=== PATIENT | female | born 1960 | race African-American/Black ===

== ENCOUNTER 2017-07-26 14:17 | Inpatient (IN) ==
[2017-07-26] MEDS ORDERED: hydrALAZINE 20 MG/1 ML VIAL IV STA (14:49)
[2017-07-26 15:04] LABS: Basophils # 0.1 10*3/uL (0.0-0.2); Basophils % 0.8 % (0.0-0.8); Eosinophils # 0.3 10*3/uL (0.0-0.87); Eosinophils % 4.4 % (0.00-10.9); Immature Granulocytes % 0.7 %; Immature Granulocytes Absolute 0.05 #; Lymphocytes # 1.5 10*3/uL (1.4-4.0); Mean Corpuscular HGB Conc 30.2 GM/DL (32-36); Mean Corpuscular Hemoglobin 30 PG (27-34); Mean Corpuscular Volume 99.4 FL (87-102); Mean Platelet Volume 9.5 FL (9.6-12.0); Monocytes # 0.5 10*3/uL (0.11-0.8); Monocytes % 6.1 % (1.7-12.7); Neutrophils # 5.3 10*3/uL (1.4-7.4); Platelet Count 231 T/CUMM (130-400); Red Cell Distribution Width 14.7 % (9.3-17.3); White Blood Count 7.7 T/CUMM (4-12)
[2017-07-26] MEDS ORDERED: hydrALAZINE 20 MG/1 ML VIAL ONE (15:06)
[2017-07-26 15:13] LABS: Alanine Aminotransferase 13 U/L (13-56); Albumin 3.3 G/DL (3.4-5.0); Alkaline Phosphatase 335 U/L (45-117); Aspartate Amino Transferase 9 U/L (0-37); Bilirubin,Total < 0.39 MG/DL (0.2-1.0); Blood Urea Nitrogen 66 MG/DL (7-18); Calcium 7.7 MG/DL (8.5-10.1); Glucose 107 MG/DL (74-106); Magnesium 1.4 MG/DL (1.8-2.4); Osmolality,Calculated 299.3 MOS/KG (273-304); Potassium 5.1 MMOL/L (3.5-5.1); Sodium 141 MMOL/L (136-145); Total Protein 8.3 G/DL (6.4-8.3); Troponin I Only < 0.015 NG/ML (0.00-0.045)
[2017-07-26 15:25] LABS: Hemoglobin 5.4 GM/DL (12.0-16.0)
[2017-07-26 15:26] LABS: Hematocrit 17.9 VOL% (35.7-47.0)
[2017-07-26] MEDS ORDERED: ONDANSETRON 4 MG/2 ML VIAL IV PRN (16:22)
[2017-07-26] MEDS ORDERED: SODIUM CHLORIDE 0.9% 1,000 ML IV PRN (16:35)
[2017-07-26] MEDS ORDERED: DEXTROSE 50% 25 GM/50 ML VIAL IV PRN (16:53)
[2017-07-26] MEDS ORDERED: GLUCAGON 1 MG VIAL IM PRN (16:53)
[2017-07-26 19:28] LABS: Folate 9.6 NG/ML (5.4-24.0); Vitamin B12 992 PG/ML (211-911)
[2017-07-26 20:27] LABS: Basophils % 0.5 % (0.0-0.8); Eosinophils # 0.4 10*3/uL (0.0-0.87); Eosinophils % 4.4 % (0.00-10.9); Immature Granulocytes % 0.8 %; Immature Granulocytes Absolute 0.07 #; Lymphocytes # 1.7 10*3/uL (1.4-4.0); Lymphocytes % 20.5 % (21.3-54.2); Mean Corpuscular HGB Conc 29.9 GM/DL (32-36); Mean Corpuscular Hemoglobin 30 PG (27-34); Mean Corpuscular Volume 98.7 FL (87-102); Mean Platelet Volume 9.5 FL (9.6-12.0); Monocytes # 0.5 10*3/uL (0.11-0.8); Monocytes % 5.5 % (1.7-12.7); Neutrophils # 5.8 10*3/uL (1.4-7.4); Neutrophils % 68.3 % (38.7-73.9); Platelet Count 205 T/CUMM (130-400); Red Blood Count 1.56 MC/CUMM (3.8-5.5); Red Cell Distribution Width 14.8 % (9.3-17.3); White Blood Count 8.5 T/CUMM (4-12)
[2017-07-26 20:29] LABS: Hematocrit 15.4 VOL% (35.7-47.0); Hemoglobin 4.6 GM/DL (12.0-16.0)
[2017-07-26] MEDS ORDERED: hydrALAZINE 20 MG/1 ML VIAL IV PRN (20:32)
[2017-07-26] MEDS ORDERED: cloNIDine 0.1 MG TABLET PO PRN (20:33)
[2017-07-26] MEDS: CARVEDILOL 12.5 MG TABLET PO SCH (20:59)
[2017-07-26] MEDS: SODIUM BICARBONATE 650 MG TABLET PO SCH (20:59)
[2017-07-26] MEDS: INSULIN REGULAR 100 UNIT/ML SUBCUT SCH (21:00)
[2017-07-26] MEDS: PANTOPRAZOLE 40 MG VIAL IV SCH (21:00)
[2017-07-26 21:27] LABS: Sedimentation Rate-Westergren 120 MM/HR (0-30)
[2017-07-27 06:07] LABS: Hemoglobin A1 (Alkaline) 97.9 % (96.5-98.5); Hemoglobin A2 (Alkaline) 2.1 % (1.5-3.5)
[2017-07-27] MEDS ORDERED: amLODIPine 2.5 MG TABLET PO SCH (09:00)
[2017-07-27] MEDS: SODIUM BICARBONATE 650 MG TABLET PO SCH ×2 (09:49→21:24)
[2017-07-27] MEDS: MAGNESIUM OXIDE 400 MG TABLET PO SCH (09:49)
[2017-07-27] MEDS: PANTOPRAZOLE 40 MG VIAL IV SCH ×2 (09:50→21:24)
[2017-07-27] MEDS: amLODIPine 5 MG TABLET PO SCH (09:50)
[2017-07-27] MEDS: CARVEDILOL 12.5 MG TABLET PO SCH ×2 (09:50→21:24)
[2017-07-27] MEDS: INSULIN REGULAR 100 UNIT/ML SUBCUT SCH ×4 (11:20→21:27)
[2017-07-27 11:52] LABS: INR 1.1; PT Patient Result 11.3 SECS; Partial Thromboplastin Time 32.3 SECS (0-40)
[2017-07-27 11:53] LABS: Basophils # 0.1 10*3/uL (0.0-0.2); Basophils % 1.2 % (0.0-0.8); Eosinophils # 0.3 10*3/uL (0.0-0.87); Eosinophils % 4.3 % (0.00-10.9); Hematocrit 20.8 VOL% (35.7-47.0); Immature Granulocytes % 1.2 %; Immature Granulocytes Absolute 0.08 #; Lymphocytes # 1.4 10*3/uL (1.4-4.0); Lymphocytes % 20.4 % (21.3-54.2); Mean Corpuscular HGB Conc 30.8 GM/DL (32-36); Mean Corpuscular Hemoglobin 30 PG (27-34); Mean Corpuscular Volume 97.2 FL (87-102); Mean Platelet Volume 9.3 FL (9.6-12.0); Monocytes # 0.4 10*3/uL (0.11-0.8); Monocytes % 5.6 % (1.7-12.7); Neutrophils # 4.7 10*3/uL (1.4-7.4); Neutrophils % 67.3 % (38.7-73.9); Platelet Count 208 T/CUMM (130-400); Red Cell Distribution Width 16.1 % (9.3-17.3); White Blood Count 6.9 T/CUMM (4-12)
[2017-07-27 11:55] LABS: Hemoglobin 6.4 GM/DL (12.0-16.0); Red Blood Count 2.14 MC/CUMM (3.8-5.5)
[2017-07-27 12:07] LABS: Calcium 7.8 MG/DL (8.5-10.1); Osmolality,Calculated 298.3 MOS/KG (273-304); Potassium 5.1 MMOL/L (3.5-5.1)
[2017-07-27] MEDS ORDERED: SODIUM CHLORIDE 0.9% 1,000 ML IV PRN (12:41)
[2017-07-27 13:42] LABS: % Iron Saturation 58.7 % (18-50)
[2017-07-27] MEDS ORDERED: GLUCAGON 1 MG VIAL IM PRN (14:03)
[2017-07-27] MEDS ORDERED: DEXTROSE 50% 25 GM/50 ML VIAL IV PRN (14:03)
[2017-07-27] MEDS: FUROSEMIDE 80 MG TABLET PO SCH (16:18)
[2017-07-27] MEDS ORDERED: SKIN HEALING OINT (AQUAPHOR) 50 GM TUBE TOP PRN (16:47)
[2017-07-28 04:25] LABS: Basophils # 0.1 10*3/uL (0.0-0.2); Basophils % 0.7 % (0.0-0.8); Eosinophils # 0.3 10*3/uL (0.0-0.87); Eosinophils % 5.1 % (0.00-10.9); Hematocrit 24.4 VOL% (35.7-47.0); Hemoglobin 7.9 GM/DL (12.0-16.0); Immature Granulocytes % 0.6 %; Immature Granulocytes Absolute 0.04 #; Lymphocytes % 14.5 % (21.3-54.2); Mean Corpuscular HGB Conc 32.4 GM/DL (32-36); Mean Corpuscular Hemoglobin 30 PG (27-34); Mean Platelet Volume 9.1 FL (9.6-12.0); Monocytes # 0.5 10*3/uL (0.11-0.8); Monocytes % 6.9 % (1.7-12.7); Neutrophils # 4.8 10*3/uL (1.4-7.4); Neutrophils % 72.2 % (38.7-73.9); Platelet Count 206 T/CUMM (130-400); Red Blood Count 2.68 MC/CUMM (3.8-5.5); Red Cell Distribution Width 16.8 % (9.3-17.3); White Blood Count 6.7 T/CUMM (4-12)
[2017-07-28 04:51] LABS: Calcium 7.8 MG/DL (8.5-10.1); Osmolality,Calculated 299.3 MOS/KG (273-304); Potassium 5.4 MMOL/L (3.5-5.1)
[2017-07-28 06:01] LABS: Apearance,Urine CLOUDY (Clear); Bacteria,Urine Many /HPF (Few); Bilirubin,Urine Negative (Negative); Blood, Urine Small mg/dL (Negative); Glucose,Urine (UA) 50 mg/dL (Negative); Ketones,Urine Negative (Negative); Mucus,Urine Occasional /LPF (Occasional); Nitrite,Urine Negative (Negative); Protein,Urine 100 MG/DL; RBC,Urine 5 /HPF (0-4); Squamous Epithelial Cell,Urine Occasional /HPF (0-10); Urine Color Yellow (Yellow); Urine Urobilinogen < 2.0 EU/DL (0.2-1.0); WBC,Urine 6 /HPF (0-6)
[2017-07-28] MEDS: LEVOTHYROXINE 75 MCG TABLET PO SCH (06:31)
[2017-07-28] MEDS ORDERED: GLUCAGON 1 MG VIAL IM PRN (09:54)
[2017-07-28] MEDS ORDERED: DEXTROSE 50% 25 GM/50 ML VIAL IV PRN (09:54)
[2017-07-28] MEDS: SODIUM BICARBONATE 650 MG TABLET PO SCH ×2 (10:47→20:37)
[2017-07-28] MEDS: amLODIPine 5 MG TABLET PO SCH (10:47)
[2017-07-28] MEDS: CARVEDILOL 12.5 MG TABLET PO SCH ×2 (10:48→20:37)
[2017-07-28] MEDS: PANTOPRAZOLE 40 MG VIAL IV SCH ×2 (10:48→20:37)
[2017-07-28] MEDS: FUROSEMIDE 80 MG TABLET PO SCH ×2 (10:48→15:41)
[2017-07-28] MEDS: MAGNESIUM OXIDE 400 MG TABLET PO SCH (10:48)
[2017-07-28] MEDS: INSULIN REGULAR 100 UNIT/ML SUBCUT SCH ×4 (10:53→20:31)
[2017-07-28] MEDS: SODIUM POLYSTYRENE SULFATE 15 GM/60 ML BOTTLE PO SCH ×3 (10:55→21:42)
[2017-07-28] MEDS ORDERED: SKIN HEALING OINT (AQUAPHOR) 50 GM TUBE TOP PRN (11:23)
[2017-07-28] MEDS ORDERED: SODIUM BICARB INJ 150 MEQ in STERILE WATER INJ 850 ML IV SCH (12:00)
[2017-07-28] MEDS ORDERED: DARBEPOETIN ALFA 200 MCG/ML VIAL SUBCUT ONE (12:00)
[2017-07-28] MEDS ORDERED: ZALEPLON 5 MG CAPSULE PO PRN (20:27)
[2017-07-29 05:05] LABS: Basophils # 0.1 10*3/uL (0.0-0.2); Basophils % 0.8 % (0.0-0.8); Eosinophils # 0.3 10*3/uL (0.0-0.87); Eosinophils % 5.4 % (0.00-10.9); Hematocrit 24.1 VOL% (35.7-47.0); Immature Granulocytes % 1.3 %; Immature Granulocytes Absolute 0.08 #; Lymphocytes % 16.4 % (21.3-54.2); Mean Corpuscular HGB Conc 33.2 GM/DL (32-36); Mean Corpuscular Hemoglobin 30 PG (27-34); Mean Corpuscular Volume 90.9 FL (87-102); Mean Platelet Volume 9.3 FL (9.6-12.0); Monocytes # 0.4 10*3/uL (0.11-0.8); Monocytes % 6.8 % (1.7-12.7); Neutrophils # 4.4 10*3/uL (1.4-7.4); Neutrophils % 69.3 % (38.7-73.9); Platelet Count 204 T/CUMM (130-400); Red Blood Count 2.65 MC/CUMM (3.8-5.5); Red Cell Distribution Width 16.4 % (9.3-17.3); White Blood Count 6.3 T/CUMM (4-12)
[2017-07-29 05:28] LABS: Calcium 7.5 MG/DL (8.5-10.1); Magnesium 1.4 MG/DL (1.8-2.4); Osmolality,Calculated 298.3 MOS/KG (273-304); Potassium 4.6 MMOL/L (3.5-5.1)
[2017-07-29] MEDS: LEVOTHYROXINE 75 MCG TABLET PO SCH (06:02)
[2017-07-29] MEDS: INSULIN REGULAR 100 UNIT/ML SUBCUT SCH ×2 (08:03→11:30)
[2017-07-29] MEDS: PANTOPRAZOLE 40 MG VIAL IV SCH (09:07)
[2017-07-29] MEDS: FUROSEMIDE 80 MG TABLET PO SCH (09:08)
[2017-07-29] MEDS: MAGNESIUM OXIDE 400 MG TABLET PO SCH (09:09)
[2017-07-29] MEDS: CARVEDILOL 12.5 MG TABLET PO SCH (09:09)
[2017-07-29] MEDS: SODIUM BICARBONATE 650 MG TABLET PO SCH (09:10)
[2017-07-29] MEDS: amLODIPine 5 MG TABLET PO SCH (09:10)
[2017-07-29] MEDS ORDERED: LIDOCAINE 100 MG/5 ML SYRINGE ONE (10:22)
[2017-07-29] MEDS ORDERED: PROPOFOL 500 MG/50 ML BOTTLE IV ONE (10:22)
[2017-07-29] MEDS ORDERED: CIPROFLOXACIN 500 MG TABLET PO SCH (12:00)
[2017-07-29 14:14] VITALS: BP 185/55
[2017-07-29] MEDS ORDERED: MAGNESIUM OXIDE 400 MG TABLET PO SCH (14:26)
== END 2017-07-29 17:10 | disposition home or self-care (01) | DRG 194 ==
LOC: EDBD → EDUNIT# → N.ED 14:17 → SUATTDRO 15:47 → N.EDINP 15:47 → N.4E 19:38
PROVIDERS: ADMIT Family Medicine; ATTEND Internal Medicine

== ENCOUNTER 2018-01-05 10:59 | Inpatient (IN) ==
[2018-01-05 12:21] LABS: Basophils # 0.1 10*3/uL (0.0-0.2); Eosinophils # 0.2 10*3/uL (0.0-0.87); Eosinophils % 2.9 % (0.00-10.9); Hematocrit 18.3 VOL% (35.7-47.0); Immature Granulocytes % 0.8 %; Immature Granulocytes Absolute 0.05 #; Lymphocytes # 1.1 10*3/uL (1.4-4.0); Lymphocytes % 18.5 % (21.3-54.2); Mean Corpuscular HGB Conc 30.1 GM/DL (32-36); Mean Corpuscular Hemoglobin 30 PG (27-34); Mean Corpuscular Volume 100.5 FL (87-102); Mean Platelet Volume 9.2 FL (9.6-12.0); Monocytes # 0.4 10*3/uL (0.11-0.8); Monocytes % 6.4 % (1.7-12.7); Neutrophils # 4.3 10*3/uL (1.4-7.4); Neutrophils % 70.4 % (38.7-73.9); Platelet Count 258 T/CUMM (130-400); Red Blood Count 1.82 MC/CUMM (3.8-5.5); Red Cell Distribution Width 13.4 % (9.3-17.3); White Blood Count 6.1 T/CUMM (4-12)
[2018-01-05 12:24] LABS: Hemoglobin 5.5 GM/DL (12.0-16.0)
[2018-01-05] MEDS ORDERED: DEXTROSE 50% 25 GM/50 ML VIAL IV PRN (13:20)
[2018-01-05] MEDS ORDERED: GLUCAGON 1 MG VIAL IM PRN (13:20)
[2018-01-05] MEDS ORDERED: ACETAMINOPHEN 325 MG TABLET PO PRN (13:20)
[2018-01-05] MEDS ORDERED: ONDANSETRON 4 MG/2 ML VIAL IV PRN (13:20)
[2018-01-05] MEDS ORDERED: SODIUM CHLORIDE 0.9% 1,000 ML IV PRN (13:33)
[2018-01-05 13:43] LABS: Alanine Aminotransferase < 9 U/L (13-56); Albumin 2.8 G/DL (3.4-5.0); Alkaline Phosphatase 260 U/L (45-117); Aspartate Amino Transferase 9 U/L (0-37); Bilirubin,Total < 0.39 MG/DL (0.2-1.0); Blood Urea Nitrogen 64 MG/DL (7-18); Calcium 7.7 MG/DL (8.5-10.1); Glucose 71 MG/DL (74-106); Osmolality,Calculated 292.5 MOS/KG (273-304); Potassium 4.6 MMOL/L (3.5-5.1); Sodium 139 MMOL/L (136-145); Total Protein 7.5 G/DL (6.4-8.3)
[2018-01-05] MEDS ORDERED: PNEUMOCOCCAL VACCINE (13 VALENT) 0.5 ML SYRINGE IM ONE (14:12)
[2018-01-05] MEDS: CARVEDILOL 12.5 MG TABLET PO SCH (17:08)
[2018-01-05 18:15] LABS: % Iron Saturation 33.7 % (18-50)
[2018-01-05 18:41] LABS: Alanine Aminotransferase < 9 U/L (13-56); Albumin 2.8 G/DL (3.4-5.0); Alkaline Phosphatase 260 U/L (45-117); Aspartate Amino Transferase 10 U/L (0-37); Bilirubin,Indirect 0.3 MG/DL (0.0-1.0); Bilirubin,Total < 0.39 MG/DL (0.2-1.0); Total Protein 7.5 G/DL (6.4-8.3)
[2018-01-05] MEDS: INSULIN LISPRO 100 UNIT/ML SUBCUT SCH ×2 (18:57→21:00)
[2018-01-05] MEDS: PANTOPRAZOLE 40 MG TABLET PO SCH (20:58)
[2018-01-05] MEDS: cloNIDine 0.1 MG TABLET PO SCH (20:59)
[2018-01-06 05:47] LABS: Basophils # 0.1 10*3/uL (0.0-0.2); Basophils % 0.9 % (0.0-0.8); Eosinophils # 0.2 10*3/uL (0.0-0.87); Eosinophils % 3.5 % (0.00-10.9); Hematocrit 23.2 VOL% (35.7-47.0); Hemoglobin 7.5 GM/DL (12.0-16.0); Immature Granulocytes % 0.5 %; Immature Granulocytes Absolute 0.03 #; Lymphocytes # 1.2 10*3/uL (1.4-4.0); Mean Corpuscular HGB Conc 32.3 GM/DL (32-36); Mean Corpuscular Hemoglobin 31 PG (27-34); Mean Corpuscular Volume 95.1 FL (87-102); Monocytes # 0.3 10*3/uL (0.11-0.8); Monocytes % 5.9 % (1.7-12.7); Neutrophils % 69.2 % (38.7-73.9); Platelet Count 259 T/CUMM (130-400); Red Blood Count 2.44 MC/CUMM (3.8-5.5); Red Cell Distribution Width 14.8 % (9.3-17.3); White Blood Count 5.8 T/CUMM (4-12)
[2018-01-06] MEDS: LEVOTHYROXINE 75 MCG TABLET PO SCH (05:58)
[2018-01-06 06:05] LABS: Calcium 7.7 MG/DL (8.5-10.1); Osmolality,Calculated 294.4 MOS/KG (273-304); Potassium 5.1 MMOL/L (3.5-5.1)
[2018-01-06 07:12] LABS: Hepatitis A Ab IgM Quant 0.21 Index; Hepatitis A Ab IgM Result Negative (Negative); Hepatitis B Core IgM Quant 0.09 Index; Hepatitis B Core IgM Result Negative (Negative); Hepatitis B Surface Ag Quant < 0.10 Index; Hepatitis B Surface Ag Result Negative (Negative); Hepatitis C Virus Ab Quant 0.17 Index; Hepatitis C Virus Ab Result Negative (Negative)
[2018-01-06] MEDS: INSULIN LISPRO 100 UNIT/ML SUBCUT SCH ×4 (07:57→21:18)
[2018-01-06] MEDS: CARVEDILOL 12.5 MG TABLET PO SCH ×2 (08:03→16:39)
[2018-01-06] MEDS: PANTOPRAZOLE 40 MG TABLET PO SCH ×2 (08:03→21:17)
[2018-01-06] MEDS: metOLazone 5 MG TABLET PO SCH (08:03)
[2018-01-06] MEDS: cloNIDine 0.1 MG TABLET PO SCH ×2 (08:03→21:18)
[2018-01-06] MEDS ORDERED: amLODIPine 5 MG TABLET PO SCH (09:00)
[2018-01-06] MEDS: SODIUM BICARBONATE 650 MG TABLET PO SCH ×2 (12:24→21:17)
[2018-01-06] MEDS: amLODIPine 10 MG TABLET PO SCH (16:39)
[2018-01-07 06:32] LABS: Basophils % 0.7 % (0.0-0.8); Eosinophils # 0.2 10*3/uL (0.0-0.87); Eosinophils % 3.9 % (0.00-10.9); Hematocrit 24.2 VOL% (35.7-47.0); Hemoglobin 7.7 GM/DL (12.0-16.0); Immature Granulocytes Absolute 0.06 #; Lymphocytes # 1.2 10*3/uL (1.4-4.0); Lymphocytes % 20.9 % (21.3-54.2); Mean Corpuscular HGB Conc 31.8 GM/DL (32-36); Mean Corpuscular Hemoglobin 30 PG (27-34); Mean Corpuscular Volume 95.7 FL (87-102); Monocytes # 0.4 10*3/uL (0.11-0.8); Neutrophils # 3.9 10*3/uL (1.4-7.4); Neutrophils % 66.5 % (38.7-73.9); Platelet Count 246 T/CUMM (130-400); Red Blood Count 2.53 MC/CUMM (3.8-5.5); Red Cell Distribution Width 14.6 % (9.3-17.3); White Blood Count 5.8 T/CUMM (4-12)
[2018-01-07 07:18] LABS: Osmolality,Calculated 293.5 MOS/KG (273-304)
[2018-01-07] MEDS: INSULIN LISPRO 100 UNIT/ML SUBCUT SCH (07:50)
[2018-01-07] MEDS: CARVEDILOL 12.5 MG TABLET PO SCH (08:49)
[2018-01-07] MEDS: metOLazone 5 MG TABLET PO SCH (08:49)
[2018-01-07] MEDS: cloNIDine 0.1 MG TABLET PO SCH (08:49)
[2018-01-07] MEDS: LEVOTHYROXINE 75 MCG TABLET PO SCH (08:49)
[2018-01-07] MEDS: amLODIPine 10 MG TABLET PO SCH (08:49)
[2018-01-07] MEDS: PANTOPRAZOLE 40 MG TABLET PO SCH (08:49)
[2018-01-07] MEDS: SODIUM BICARBONATE 650 MG TABLET PO SCH (08:53)
[2018-01-07] MEDS ORDERED: [UNRECOGNIZED DRUG - OTHER] PO SCH (09:00)
[2018-01-07] MEDS ORDERED: DARBEPOETIN ALFA 200 MCG/ML VIAL SUBCUT ONE (11:30)
[2018-01-07 11:47] VITALS: BP 137/80
== END 2018-01-07 12:00 | disposition home or self-care (01) | DRG 194 ==
LOC: N.EDINP 10:59 → N.ED 10:59 → SUATTDRO 12:31 → N.2E 13:09 → SUATTDRO 01-06 12:51
PROVIDERS: ADMIT Internal Medicine Nephrology; ATTEND Internal Medicine

== ENCOUNTER 2018-01-30 21:03 | Inpatient (IN) ==
[2018-01-30 22:49] LABS: Basophils # 0.1 10*3/uL (0.0-0.2); Basophils % 0.5 % (0.0-0.8); Eosinophils # 0.3 10*3/uL (0.0-0.87); Eosinophils % 2.7 % (0.00-10.9); Hematocrit 22.8 VOL% (35.7-47.0); Immature Granulocytes % 1.3 %; Immature Granulocytes Absolute 0.12 #; Lymphocytes % 10.5 % (21.3-54.2); Mean Corpuscular HGB Conc 30.7 GM/DL (32-36); Mean Corpuscular Hemoglobin 30 PG (27-34); Mean Corpuscular Volume 97.4 FL (87-102); Mean Platelet Volume 9.4 FL (9.6-12.0); Monocytes # 0.5 10*3/uL (0.11-0.8); Monocytes % 5.8 % (1.7-12.7); Neutrophils # 7.4 10*3/uL (1.4-7.4); Neutrophils % 79.2 % (38.7-73.9); Platelet Count 343 T/CUMM (130-400); Red Blood Count 2.34 MC/CUMM (3.8-5.5); Red Cell Distribution Width 14.5 % (9.3-17.3); White Blood Count 9.4 T/CUMM (4-12)
[2018-01-30 22:58] LABS: Calcium 7.1 MG/DL (8.5-10.1); Osmolality,Calculated 303.7 MOS/KG (273-304); Potassium 5.4 MMOL/L (3.5-5.1)
[2018-01-31 02:57] LABS: Apearance,Urine Slightly Hazy (Clear); Bacteria,Urine Occasional /HPF (Few); Bilirubin,Urine Negative (Negative); Blood, Urine Small mg/dL (Negative); Glucose,Urine (UA) 50 mg/dL (Negative); Ketones,Urine Negative (Negative); Nitrite,Urine Negative (Negative); Protein,Urine 100 MG/DL; Squamous Epithelial Cell,Urine Occasional /HPF (0-10); Urine Color Yellow (Yellow); Urine Specific Gravity 1.009 (1.001-1.035); Urine Urobilinogen < 2.0 EU/DL (0.2-1.0); WBC,Urine 54 /HPF (0-6)
[2018-01-31 05:38] LABS: Basophils # 0.1 10*3/uL (0.0-0.2); Basophils % 0.6 % (0.0-0.8); Eosinophils # 0.1 10*3/uL (0.0-0.87); Eosinophils % 1.8 % (0.00-10.9); Hematocrit 19.6 VOL% (35.7-47.0); Immature Granulocytes % 1.8 %; Immature Granulocytes Absolute 0.14 #; Lymphocytes % 11.9 % (21.3-54.2); Mean Corpuscular HGB Conc 32.7 GM/DL (32-36); Mean Corpuscular Hemoglobin 31 PG (27-34); Mean Corpuscular Volume 95.6 FL (87-102); Mean Platelet Volume 9.7 FL (9.6-12.0); Monocytes # 0.4 10*3/uL (0.11-0.8); Monocytes % 4.9 % (1.7-12.7); NRBC # 0.02 10*3/uL; Neutrophils # 6.3 10*3/uL (1.4-7.4); Platelet Count 323 T/CUMM (130-400); Red Blood Count 2.05 MC/CUMM (3.8-5.5); Red Cell Distribution Width 14.3 % (9.3-17.3)
[2018-01-31 05:54] LABS: Hemoglobin 6.4 GM/DL (12.0-16.0)
[2018-01-31 05:56] LABS: INR 1.1; PT Patient Result 11.8 SECS; Partial Thromboplastin Time 38.4 SECS (0-40)
[2018-01-31 06:04] LABS: Alanine Aminotransferase < 6 U/L (13-56); Albumin 2.1 G/DL (3.4-5.0); Alkaline Phosphatase 180 U/L (45-117); Aspartate Amino Transferase 6 U/L (0-37); Blood Urea Nitrogen 85 MG/DL (7-18); Calcium 6.8 MG/DL (8.5-10.1); Glucose 121 MG/DL (74-106); Osmolality,Calculated 305.4 MOS/KG (273-304); Potassium 5.5 MMOL/L (3.5-5.1); Sodium 140 MMOL/L (136-145); Total Protein 6.6 G/DL (6.4-8.3)
[2018-01-31 18:23] LABS: Hematocrit 27.6 VOL% (35.7-47.0); Hemoglobin 8.8 GM/DL (12.0-16.0)
[2018-02-01 06:00] LABS: Basophils % 0.6 % (0.0-0.8); Eosinophils # 0.2 10*3/uL (0.0-0.87); Eosinophils % 2.7 % (0.00-10.9); Hematocrit 26.8 VOL% (35.7-47.0); Hemoglobin 8.5 GM/DL (12.0-16.0); Immature Granulocytes % 1.7 %; Immature Granulocytes Absolute 0.12 #; Lymphocytes # 1.1 10*3/uL (1.4-4.0); Lymphocytes % 14.9 % (21.3-54.2); Mean Corpuscular HGB Conc 31.7 GM/DL (32-36); Mean Corpuscular Hemoglobin 29 PG (27-34); Mean Corpuscular Volume 92.4 FL (87-102); Monocytes # 0.4 10*3/uL (0.11-0.8); Monocytes % 5.4 % (1.7-12.7); Neutrophils # 5.3 10*3/uL (1.4-7.4); Neutrophils % 74.7 % (38.7-73.9); Platelet Count 299 T/CUMM (130-400); Red Cell Distribution Width 15.9 % (9.3-17.3); White Blood Count 7.1 T/CUMM (4-12)
[2018-02-01 06:15] LABS: Calcium 6.9 MG/DL (8.5-10.1); Osmolality,Calculated 307.1 MOS/KG (273-304); Potassium 4.7 MMOL/L (3.5-5.1)
[2018-02-02 10:31] LABS: Basophils % 0.4 % (0.0-0.8); Eosinophils # 0.1 10*3/uL (0.0-0.87); Hematocrit 25.1 VOL% (35.7-47.0); Hemoglobin 8.1 GM/DL (12.0-16.0); Immature Granulocytes % 1.5 %; Immature Granulocytes Absolute 0.14 #; Lymphocytes # 0.9 10*3/uL (1.4-4.0); Lymphocytes % 9.4 % (21.3-54.2); Mean Corpuscular HGB Conc 32.3 GM/DL (32-36); Mean Corpuscular Hemoglobin 30 PG (27-34); Mean Corpuscular Volume 91.3 FL (87-102); Mean Platelet Volume 9.5 FL (9.6-12.0); Monocytes # 0.5 10*3/uL (0.11-0.8); Monocytes % 5.6 % (1.7-12.7); Neutrophils # 7.4 10*3/uL (1.4-7.4); Neutrophils % 82.1 % (38.7-73.9); Platelet Count 306 T/CUMM (130-400); Red Blood Count 2.75 MC/CUMM (3.8-5.5); Red Cell Distribution Width 15.9 % (9.3-17.3)
[2018-02-02 10:37] LABS: Calcium 6.6 MG/DL (8.5-10.1); Osmolality,Calculated 302.3 MOS/KG (273-304); Potassium 3.9 MMOL/L (3.5-5.1)
[2018-02-03 06:17] LABS: Basophils # 0.1 10*3/uL (0.0-0.2); Basophils % 0.7 % (0.0-0.8); Eosinophils # 0.1 10*3/uL (0.0-0.87); Eosinophils % 1.3 % (0.00-10.9); Hematocrit 23.4 VOL% (35.7-47.0); Hemoglobin 7.5 GM/DL (12.0-16.0); Immature Granulocytes % 1.7 %; Immature Granulocytes Absolute 0.13 #; Lymphocytes % 13.7 % (21.3-54.2); Mean Corpuscular HGB Conc 32.1 GM/DL (32-36); Mean Corpuscular Hemoglobin 29 PG (27-34); Mean Corpuscular Volume 91.1 FL (87-102); Mean Platelet Volume 9.5 FL (9.6-12.0); Monocytes # 0.4 10*3/uL (0.11-0.8); Monocytes % 5.7 % (1.7-12.7); Neutrophils # 5.8 10*3/uL (1.4-7.4); Neutrophils % 76.9 % (38.7-73.9); Platelet Count 274 T/CUMM (130-400); Red Blood Count 2.57 MC/CUMM (3.8-5.5); Red Cell Distribution Width 15.9 % (9.3-17.3); White Blood Count 7.6 T/CUMM (4-12)
[2018-02-03 06:39] LABS: Calcium 6.8 MG/DL (8.5-10.1); Osmolality,Calculated 298.4 MOS/KG (273-304); Potassium 3.7 MMOL/L (3.5-5.1)
[2018-02-06 05:34] LABS: Basophils # 0.1 10*3/uL (0.0-0.2); Basophils % 0.6 % (0.0-0.8); Eosinophils # 0.1 10*3/uL (0.0-0.87); Eosinophils % 1.5 % (0.00-10.9); Hematocrit 23.2 VOL% (35.7-47.0); Hemoglobin 7.6 GM/DL (12.0-16.0); Immature Granulocytes % 3.6 %; Immature Granulocytes Absolute 0.29 #; Lymphocytes # 1.2 10*3/uL (1.4-4.0); Lymphocytes % 14.2 % (21.3-54.2); Mean Corpuscular HGB Conc 32.8 GM/DL (32-36); Mean Corpuscular Hemoglobin 30 PG (27-34); Mean Platelet Volume 9.4 FL (9.6-12.0); Monocytes # 0.3 10*3/uL (0.11-0.8); Monocytes % 4.1 % (1.7-12.7); Neutrophils # 6.1 10*3/uL (1.4-7.4); Platelet Count 337 T/CUMM (130-400); Red Blood Count 2.55 MC/CUMM (3.8-5.5); Red Cell Distribution Width 15.2 % (9.3-17.3); White Blood Count 8.1 T/CUMM (4-12)
[2018-02-06 06:01] LABS: Calcium 6.7 MG/DL (8.5-10.1); Osmolality,Calculated 290.8 MOS/KG (273-304); Potassium 3.6 MMOL/L (3.5-5.1)
[2018-02-09 06:25] LABS: Basophils # 0.1 10*3/uL (0.0-0.2); Basophils % 0.6 % (0.0-0.8); Eosinophils # 0.1 10*3/uL (0.0-0.87); Eosinophils % 1.1 % (0.00-10.9); Hematocrit 22.3 VOL% (35.7-47.0); Hemoglobin 7.2 GM/DL (12.0-16.0); Immature Granulocytes % 3.8 %; Immature Granulocytes Absolute 0.33 #; Lymphocytes # 1.3 10*3/uL (1.4-4.0); Lymphocytes % 15.1 % (21.3-54.2); Mean Corpuscular HGB Conc 32.3 GM/DL (32-36); Mean Corpuscular Hemoglobin 30 PG (27-34); Mean Corpuscular Volume 93.3 FL (87-102); Mean Platelet Volume 9.4 FL (9.6-12.0); Monocytes # 0.4 10*3/uL (0.11-0.8); Monocytes % 4.7 % (1.7-12.7); Neutrophils # 6.5 10*3/uL (1.4-7.4); Neutrophils % 74.7 % (38.7-73.9); Platelet Count 305 T/CUMM (130-400); Red Blood Count 2.39 MC/CUMM (3.8-5.5); Red Cell Distribution Width 15.3 % (9.3-17.3); White Blood Count 8.7 T/CUMM (4-12)
[2018-02-09 06:33] LABS: Calcium 7.2 MG/DL (8.5-10.1); Potassium 4.3 MMOL/L (3.5-5.1)
[2018-02-09 17:49] LABS: Hematocrit 24.2 VOL% (35.7-47.0); Hemoglobin 7.7 GM/DL (12.0-16.0)
[2018-02-10 07:06] LABS: Basophils # 0.1 10*3/uL (0.0-0.2); Basophils % 0.8 % (0.0-0.8); Eosinophils # 0.1 10*3/uL (0.0-0.87); Eosinophils % 1.1 % (0.00-10.9); Hematocrit 25.1 VOL% (35.7-47.0); Hemoglobin 7.9 GM/DL (12.0-16.0); Immature Granulocytes Absolute 0.28 #; Lymphocytes # 1.2 10*3/uL (1.4-4.0); Lymphocytes % 12.8 % (21.3-54.2); Mean Corpuscular HGB Conc 31.5 GM/DL (32-36); Mean Corpuscular Hemoglobin 30 PG (27-34); Mean Corpuscular Volume 93.7 FL (87-102); Mean Platelet Volume 9.6 FL (9.6-12.0); Monocytes # 0.5 10*3/uL (0.11-0.8); Monocytes % 5.4 % (1.7-12.7); Neutrophils # 7.1 10*3/uL (1.4-7.4); Neutrophils % 76.9 % (38.7-73.9); Platelet Count 292 T/CUMM (130-400); Red Blood Count 2.68 MC/CUMM (3.8-5.5); Red Cell Distribution Width 16.4 % (9.3-17.3); White Blood Count 9.3 T/CUMM (4-12)
[2018-02-10 19:18] VITALS: BP 117/72
== END 2018-02-10 19:57 | DRG 308 ==
LOC: EDBD → EDUNIT# → N.ED 21:03 → N.EDINP 01-31 00:19 → N.3E 01-31 01:10
PROVIDERS: ADMIT Orthopaedic Surgery; ATTEND Orthopaedic Surgery

== ENCOUNTER 2018-02-18 14:41 | Inpatient (IN) ==
[2018-02-18] MEDS ORDERED: LEVOFLOXACIN INJ 750 MG in PREMIX 1 EACH IV STA (15:35)
[2018-02-18] MEDS ORDERED: ALBUTEROL NEB SOLN 5 MG/ML 20 ML/BOTTLE CONT NEB STA (15:35)
[2018-02-18 15:43] LABS: Basophils # 0.1 10*3/uL (0.0-0.2); Basophils % 1.1 % (0.0-0.8); Eosinophils # 0.2 10*3/uL (0.0-0.87); Eosinophils % 2.5 % (0.00-10.9); Hematocrit 26.6 VOL% (35.7-47.0); Hemoglobin 8.2 GM/DL (12.0-16.0); Immature Granulocytes % 1.3 %; Immature Granulocytes Absolute 0.12 #; Lymphocytes % 10.2 % (21.3-54.2); Mean Corpuscular HGB Conc 30.8 GM/DL (32-36); Mean Corpuscular Hemoglobin 30 PG (27-34); Mean Corpuscular Volume 97.1 FL (87-102); Mean Platelet Volume 9.1 FL (9.6-12.0); Monocytes # 0.7 10*3/uL (0.11-0.8); Monocytes % 6.9 % (1.7-12.7); Neutrophils # 7.4 10*3/uL (1.4-7.4); Platelet Count 417 T/CUMM (130-400); Red Blood Count 2.74 MC/CUMM (3.8-5.5); Red Cell Distribution Width 16.1 % (9.3-17.3); White Blood Count 9.4 T/CUMM (4-12)
[2018-02-18] MEDS ORDERED: ONDANSETRON 4 MG/2 ML VIAL IV PRN (16:00)
[2018-02-18 16:01] LABS: INR 1.1; PT Patient Result 11.6 SECS; Partial Thromboplastin Time 33.2 SECS (0-40)
[2018-02-18] MEDS ORDERED: SODIUM POLYSTYRENE SULFATE 15 GM/60 ML BOTTLE PO STA (16:06)
[2018-02-18 16:29] LABS: Alanine Aminotransferase < 6 U/L (13-56); Albumin 1.9 G/DL (3.4-5.0); Alkaline Phosphatase 160 U/L (45-117); Aspartate Amino Transferase 8 U/L (0-37); Bilirubin,Total < 0.39 MG/DL (0.2-1.0); Blood Urea Nitrogen 71 MG/DL (7-18); Calcium 7.5 MG/DL (8.5-10.1); Glucose 89 MG/DL (74-106); Osmolality,Calculated 296.5 MOS/KG (273-304); Potassium 5.7 MMOL/L (3.5-5.1); Sodium 139 MMOL/L (136-145); Total Protein 7.4 G/DL (6.4-8.3)
[2018-02-18] MEDS: SODIUM BICARBONATE 650 MG TABLET PO SCH (22:23)
[2018-02-18] MEDS: CARVEDILOL 12.5 MG TABLET PO SCH (22:24)
[2018-02-18] MEDS: cloNIDine 0.1 MG TABLET PO SCH (22:24)
[2018-02-19] MEDS: LEVOTHYROXINE 75 MCG TABLET PO SCH (06:50)
[2018-02-19 07:28] LABS: Basophils # 0.1 10*3/uL (0.0-0.2); Basophils % 0.7 % (0.0-0.8); Eosinophils # 0.2 10*3/uL (0.0-0.87); Eosinophils % 2.5 % (0.00-10.9); Hematocrit 25.8 VOL% (35.7-47.0); Hemoglobin 7.8 GM/DL (12.0-16.0); Immature Granulocytes % 1.7 %; Immature Granulocytes Absolute 0.13 #; Lymphocytes # 0.9 10*3/uL (1.4-4.0); Lymphocytes % 11.7 % (21.3-54.2); Mean Corpuscular HGB Conc 30.2 GM/DL (32-36); Mean Corpuscular Hemoglobin 30 PG (27-34); Mean Corpuscular Volume 97.7 FL (87-102); Mean Platelet Volume 9.3 FL (9.6-12.0); Monocytes # 0.5 10*3/uL (0.11-0.8); Monocytes % 6.3 % (1.7-12.7); Neutrophils # 5.9 10*3/uL (1.4-7.4); Neutrophils % 77.1 % (38.7-73.9); Platelet Count 390 T/CUMM (130-400); Red Blood Count 2.64 MC/CUMM (3.8-5.5); Red Cell Distribution Width 16.1 % (9.3-17.3); White Blood Count 7.6 T/CUMM (4-12)
[2018-02-19 08:01] LABS: Alanine Aminotransferase < 6 U/L (13-56); Albumin 1.6 G/DL (3.4-5.0); Alkaline Phosphatase 147 U/L (45-117); Aspartate Amino Transferase 10 U/L (0-37); Bilirubin,Total < 0.39 MG/DL (0.2-1.0); Blood Urea Nitrogen 71 MG/DL (7-18); Calcium 7.7 MG/DL (8.5-10.1); Glucose 79 MG/DL (74-106); Osmolality,Calculated 296.5 MOS/KG (273-304); Potassium 5.4 MMOL/L (3.5-5.1); Sodium 139 MMOL/L (136-145); Total Protein 6.8 G/DL (6.4-8.3)
[2018-02-19] MEDS: SODIUM BICARBONATE 650 MG TABLET PO SCH ×2 (08:58→21:05)
[2018-02-19] MEDS: CYANOCOBALAMIN 500 MCG TABLET PO SCH (08:58)
[2018-02-19] MEDS: PANTOPRAZOLE 40 MG TABLET PO SCH (08:59)
[2018-02-19] MEDS: CARVEDILOL 12.5 MG TABLET PO SCH ×2 (08:59→18:19)
[2018-02-19] MEDS: MAGNESIUM OXIDE 400 MG TABLET PO SCH (08:59)
[2018-02-19] MEDS: cloNIDine 0.1 MG TABLET PO SCH ×2 (08:59→21:05)
[2018-02-19] MEDS: FUROSEMIDE 80 MG TABLET PO SCH ×2 (08:59→17:39)
[2018-02-19 12:05] LABS: Hepatitis A Ab IgM Quant 0.17 Index; Hepatitis A Ab IgM Result Negative (Negative); Hepatitis B Core IgM Quant < 0.05 Index; Hepatitis B Core IgM Result Negative (Negative); Hepatitis B Surface Ag Quant 0.18 Index; Hepatitis B Surface Ag Result Negative (Negative); Hepatitis C Virus Ab Quant 0.17 Index; Hepatitis C Virus Ab Result Negative (Negative)
[2018-02-19] MEDS ORDERED: ceFAZolin 1,000 MG in SYRINGE 1 EACH IV ONE (12:30)
[2018-02-19] MEDS ORDERED: BUPIVACAINE 0.25% /EPI 10 ML VIAL ONE (13:03)
[2018-02-19] MEDS ORDERED: LIDOCAINE 1%/EPI INJ 20 ML VIAL ONE (13:03)
[2018-02-19] MEDS ORDERED: HEPARIN 5,000 UNIT/1 ML VIAL ONE (13:03)
[2018-02-19] MEDS ORDERED: MIDAZOLAM 2 MG/2 ML VIAL ONE (13:59)
[2018-02-19] MEDS ORDERED: PROPOFOL 200 MG/20 ML VIAL IV ONE (13:59)
[2018-02-19] MEDS ORDERED: ETOMIDATE 40 MG/20 ML VIAL IV ONE (14:00)
[2018-02-19] MEDS ORDERED: HEPARIN 10,000 UNIT/10 ML VIAL IV PRN (15:44)
[2018-02-20] MEDS ORDERED: NITROGLYCERIN SL 0.4 MG TABLET SL PRN (04:29)
[2018-02-20] MEDS ORDERED: MORPHINE 4 MG/1 ML VIAL IV PRN (04:29)
[2018-02-20] MEDS ORDERED: ASPIRIN CHEW 81 MG TABLET PO ONE (04:30)
[2018-02-20] MEDS ORDERED: NITROGLYCERIN SL 0.4 MG TABLET SL ONE (04:31)
[2018-02-20 05:45] LABS: Apearance,Urine CLEAR (Clear); Bacteria,Urine Occasional /HPF (Few); Bilirubin,Urine Negative (Negative); Blood, Urine Negative (Negative); Glucose,Urine (UA) 50 mg/dL (Negative); Hyaline Casts,Urine 1 /LPF (0-3); Ketones,Urine Negative (Negative); Nitrite,Urine Negative (Negative); Protein,Urine 100 MG/DL; RBC,Urine <1 /HPF (0-4); Squamous Epithelial Cell,Urine Occasional /HPF (0-10); Urine Color Straw (Yellow); Urine Specific Gravity 1.008 (1.001-1.035); Urine Urobilinogen < 2.0 EU/DL (0.2-1.0); WBC,Urine 1 /HPF (0-6)
[2018-02-20 05:47] LABS: Basophils # 0.1 10*3/uL (0.0-0.2); Basophils % 0.8 % (0.0-0.8); Eosinophils # 0.3 10*3/uL (0.0-0.87); Eosinophils % 3.5 % (0.00-10.9); Hematocrit 24.9 VOL% (35.7-47.0); Hemoglobin 7.5 GM/DL (12.0-16.0); Immature Granulocytes % 1.4 %; Lymphocytes # 1.1 10*3/uL (1.4-4.0); Lymphocytes % 14.9 % (21.3-54.2); Mean Corpuscular HGB Conc 30.1 GM/DL (32-36); Mean Corpuscular Hemoglobin 30 PG (27-34); Mean Platelet Volume 9.3 FL (9.6-12.0); Monocytes # 0.6 10*3/uL (0.11-0.8); Monocytes % 7.7 % (1.7-12.7); Neutrophils # 5.3 10*3/uL (1.4-7.4); Neutrophils % 71.7 % (38.7-73.9); Platelet Count 320 T/CUMM (130-400); Red Blood Count 2.49 MC/CUMM (3.8-5.5); Red Cell Distribution Width 15.7 % (9.3-17.3); White Blood Count 7.4 T/CUMM (4-12)
[2018-02-20 06:01] LABS: Alanine Aminotransferase < 6 U/L (13-56); Albumin 1.8 G/DL (3.4-5.0); Alkaline Phosphatase 135 U/L (45-117); Aspartate Amino Transferase 5 U/L (0-37); Bilirubin,Total < 0.39 MG/DL (0.2-1.0); Blood Urea Nitrogen 55 MG/DL (7-18); Calcium 7.4 MG/DL (8.5-10.1); Glucose 79 MG/DL (74-106); Osmolality,Calculated 294.3 MOS/KG (273-304); Potassium 5.2 MMOL/L (3.5-5.1); Sodium 141 MMOL/L (136-145); Total Protein 6.2 G/DL (6.4-8.3); Troponin I Only 0.022 NG/ML (0.00-0.045)
[2018-02-20 06:15] LABS: Alanine Aminotransferase < 6 U/L (13-56); Albumin 1.5 G/DL (3.4-5.0); Alkaline Phosphatase 129 U/L (45-117); Aspartate Amino Transferase 5 U/L (0-37); Bilirubin,Total < 0.39 MG/DL (0.2-1.0); Blood Urea Nitrogen 53 MG/DL (7-18); Calcium 7.6 MG/DL (8.5-10.1); Glucose 83 MG/DL (74-106); Osmolality,Calculated 293.3 MOS/KG (273-304); Sodium 141 MMOL/L (136-145); Total Protein 6.5 G/DL (6.4-8.3)
[2018-02-20] MEDS: LEVOTHYROXINE 75 MCG TABLET PO SCH (06:48)
[2018-02-20] MEDS: cloNIDine 0.1 MG TABLET PO SCH ×2 (12:37→20:30)
[2018-02-20] MEDS: MAGNESIUM OXIDE 400 MG TABLET PO SCH (12:37)
[2018-02-20] MEDS: CYANOCOBALAMIN 500 MCG TABLET PO SCH (12:37)
[2018-02-20] MEDS: FUROSEMIDE 80 MG TABLET PO SCH ×2 (12:37→16:53)
[2018-02-20] MEDS: PANTOPRAZOLE 40 MG TABLET PO SCH (12:37)
[2018-02-20] MEDS: CARVEDILOL 12.5 MG TABLET PO SCH ×2 (12:37→16:54)
[2018-02-20] MEDS: SODIUM BICARBONATE 650 MG TABLET PO SCH ×2 (12:37→20:29)
[2018-02-20] MEDS ORDERED: LEVOFLOXACIN INJ 500 MG in PREMIX 1 EACH IV SCH (16:00)
[2018-02-21] MEDS: LEVOTHYROXINE 75 MCG TABLET PO SCH (06:35)
[2018-02-21] MEDS: FUROSEMIDE 80 MG TABLET PO SCH ×2 (08:50→17:27)
[2018-02-21] MEDS: SODIUM BICARBONATE 650 MG TABLET PO SCH ×2 (08:50→20:56)
[2018-02-21] MEDS: PANTOPRAZOLE 40 MG TABLET PO SCH (08:50)
[2018-02-21] MEDS: cloNIDine 0.1 MG TABLET PO SCH ×2 (08:50→20:55)
[2018-02-21] MEDS: CYANOCOBALAMIN 500 MCG TABLET PO SCH (08:50)
[2018-02-21] MEDS: MAGNESIUM OXIDE 400 MG TABLET PO SCH (08:50)
[2018-02-21] MEDS: CARVEDILOL 12.5 MG TABLET PO SCH ×2 (08:51→17:27)
[2018-02-22] MEDS: LEVOTHYROXINE 75 MCG TABLET PO SCH (06:10)
[2018-02-22] MEDS: CYANOCOBALAMIN 500 MCG TABLET PO SCH (08:31)
[2018-02-22] MEDS: FUROSEMIDE 80 MG TABLET PO SCH (08:32)
[2018-02-22] MEDS: MAGNESIUM OXIDE 400 MG TABLET PO SCH (08:32)
[2018-02-22] MEDS: PANTOPRAZOLE 40 MG TABLET PO SCH (08:32)
[2018-02-22] MEDS: SODIUM BICARBONATE 650 MG TABLET PO SCH (08:32)
[2018-02-22 09:46] LABS: Calcium 7.9 MG/DL (8.5-10.1); Osmolality,Calculated 286.4 MOS/KG (273-304); Potassium 4.5 MMOL/L (3.5-5.1)
[2018-02-22] MEDS: cloNIDine 0.1 MG TABLET PO SCH (14:08)
[2018-02-22] MEDS: CARVEDILOL 12.5 MG TABLET PO SCH (14:08)
[2018-02-22 16:35] VITALS: BP 128/100
== END 2018-02-22 16:45 | disposition home health service (06) | DRG 194 ==
LOC: EDUNIT# → N.ED 14:41 → SUATTDRO 15:52 → N.EDINP 15:52 → N.5E 18:18
PROVIDERS: ADMIT Internal Medicine; ATTEND Hospitalist